=== PATIENT | female | born 1965 | race Caucasian/White ===

== ENCOUNTER 2020-02-13 18:25 | Emergency (ER) | payer SELFPAY ==
[~2020-02-13] VITALS: Ht 160 cm; Wt 72.7 kg
[2020-02-13 18:54] VITALS: BP 151/96; Ht 160 cm; Wt 72.7 kg
== END 2020-02-14 07:22 | disposition left against medical advice (07) ==
LOC: D.ER 18:25
DX: R09.89 Other specified symptoms and signs involving the circulatory and respiratory systems (principal)